=== PATIENT | female | born 1995 | race American Indian/Alaskan Native ===

== ENCOUNTER 2020-02-08 20:59 | Emergency (ER) | payer OTHER ==
[~2020-02-08] VITALS: Ht 170.2 cm; Wt 87.7 kg
[2020-02-08] MEDS ORDERED: PROAAER10 INH (21:14)
[2020-02-08 22:02] LABS: ABG BASE EXCESS -2.3 (-2.0-2.0); ABG O2 SATURATION 98.2 % (95.0-99.0); ABG PARTIAL PRESSURE CO2 36.3 mmHg (35.0-45.0); ABG PARTIAL PRESSURE O2 106.5 mmHg (75.0-100.0); ABG STANDARD HCO3 22.6 MEQ/L (22.0-26.0); ABG TOTAL CO2 23.1 MEQ/L (22.0-29.0)
[2020-02-08 22:55] VITALS: BP 111/68
--- NOTE | 2020-02-09 06:16 | ECGEPIP ---
[facility] - ED Test Date: 2020-02-08 Pat Name: STEPHANIE TRONCOSO Department: Room: - Gender: Female Teaching Manager: : 1995 Requested By: CHAO JESSICA Order Number: [id number] Reading MD: Gordon Simeon Measurements Intervals [place] Rate: 68 P: 24 UT: 156 QRS: 27 QRSD: 86 T: 22 QT: 378 QTc: 403 Interpretive Statements SINUS RHYTHM POOR R WAVE PROGRESSION INCOMPLETE RIGHT BUNDLE BRANCH BLOCK NSTTW ABNORMALITIES NO PRIORS FOR COMPARISON Electronically Signed on 02-09-2020 6:16:45 EDT by Gordon Simeon
--- NOTE | 2020-02-09 08:06 | REP ---
Clinical: Chest pain. Anxiety . Comparison: None . Findings: The mediastinum and cardiac silhouette are stable and within normal limits for portable technique. The lung henriquez are clear without acute consolidation, effusion, or pneumothorax. Skeletal structures are intact. Impression: No acute cardiopulmonary process appreciated. Electronically Signed by Hernandez Cortes MD 02/09/2020 07:58 A
== END 2020-02-08 23:06 | disposition home or self-care (01) ==
LOC: M ED 20:59
DX: F43.0 Acute stress reaction (principal); J45.909 Unspecified asthma, uncomplicated; F41.9 Anxiety disorder, unspecified; Z91.011 Allergy to milk products

== ENCOUNTER 2020-04-03 18:01 | Emergency (ER) | payer OTHER ==
[~2020-04-03] VITALS: Ht 165.1 cm; Wt 90.7 kg
[~2020-04-03 18:01] MED LIST: PROAAER10 INH
[2020-04-03 18:02] VITALS: BP 125/60
[2020-04-03] MEDS ORDERED: IBUPROFEN 800 (18:10)
[2020-04-03] MEDS ORDERED: SERT-141 PO (18:10)
[2020-04-03] MEDS ORDERED: KETOROLAC 60MG 2ML VIAL IM ONE (21:15)
[2020-04-03] MEDS ORDERED: MECLIZINE 25 MG TABLET PO ONE (21:15)
== END 2020-04-03 21:54 | disposition left against medical advice (07) ==
LOC: M ED 18:01
DX: R42 Dizziness and giddiness (principal); R07.9 Chest pain, unspecified; R51 Headache; Z11.59 Encounter for screening for other viral diseases; J45.909 Unspecified asthma, uncomplicated; Z53.9 Procedure and treatment not carried out, unspecified reason; Z91.040 Latex allergy status; Z79.51 Long term (current) use of inhaled steroids
CPT/HCPCS: 96372; 99281; U0002

== ENCOUNTER 2020-05-02 14:20 | Emergency (ER) | payer OTHER ==
[~2020-05-02] VITALS: Ht 165.1 cm; Wt 88.6 kg
[~2020-05-02 14:20] MED LIST changes: +IBUPROFEN 800; +SERT-141 PO
[2020-05-02] MEDS ORDERED: PREN27TA3 (14:34)
[2020-05-02] MEDS ORDERED: METOCLOPRAMIDE INJ 10MG/2ML VIAL (J2765 PER 1) IV ONE (15:00)
[2020-05-02] MEDS ORDERED: NS 1,000 ML IV ONE (15:00)
[2020-05-02 15:07] LABS: BASO % 0.2 % (0.0-1.0); EOS # 0.2 10^3/uL (0.0-0.5); EOS % 3.3 % (0.0-3.0); HEMATOCRIT 39.7 % (36.0-47.0); HEMOGLOBIN 13.7 g/dl (12.0-15.5); LYMPH # 2.3 10^3/uL (1.5-5.0); LYMPH % 35.3 % (24.0-44.0); MEAN CORPUSCULAR HEMOGLOBIN 30.6 pg (27.0-33.0); MEAN CORPUSCULAR HGB CONC 34.5 g/dl (32.0-36.5); MEAN CORPUSCULAR VOLUME 88.6 fl (80.0-96.0); MONO # 0.4 10^3/uL (0.0-0.8); MONO % 5.9 % (0.0-5.0); NEUTROPHILS # 3.6 10^3/uL (1.5-8.5); PLATELET COUNT, AUTOMATED 148 10^3/uL (150-450); RED BLOOD COUNT 4.48 10^6/uL (4.00-5.40); WHITE BLOOD COUNT 6.6 10^3/uL (4.0-10.0)
[2020-05-02 15:31] LABS: ALBUMIN 3.7 GM/DL (3.2-5.2); ALT/SGPT 14 U/L (12-78); BILIRUBIN,DIRECT 0.1 MG/DL (0.0-0.2); BILIRUBIN,TOTAL 0.4 MG/DL (0.2-1.0); BLOOD UREA NITROGEN 13 MG/DL (7-18); CALCIUM LEVEL 9.1 MG/DL (8.5-10.1); CARBON DIOXIDE LEVEL 28 MEQ/L (21-32); CHLORIDE LEVEL 108 MEQ/L (98-107); CREATININE FOR GFR 0.69 MG/DL (0.55-1.30); GLOMERULAR FILTRATION RATE > 60.0 (>60); GLUCOSE, FASTING 99 MG/DL (70-100); POTASSIUM SERUM 3.6 MEQ/L (3.5-5.1); SODIUM LEVEL 140 MEQ/L (136-145); TOTAL PROTEIN 7.6 GM/DL (6.4-8.2)
[2020-05-02] MEDS ORDERED: REGL5TAB2 PO (16:07)
[2020-05-02 16:21] VITALS: BP 142/73
== END 2020-05-02 16:22 | disposition home or self-care (01) ==
LOC: EDBD 14:20 → M ED 14:20
DX: O21.9 Vomiting of pregnancy, unspecified (principal); Z79.51 Long term (current) use of inhaled steroids; Z91.011 Allergy to milk products
CPT/HCPCS: 80048; 80076; 81001; 85025; 96361; 96374; 99284; J2765

== ENCOUNTER 2020-05-26 07:12 | Emergency (ER) | payer OTHER ==
[~2020-05-26] VITALS: Ht 165.1 cm; Wt 85.5 kg
[~2020-05-26 07:12] MED LIST changes: +PREN27TA3; +REGL5TAB2 PO
[2020-05-26 08:39] LABS: BASO % 0.2 % (0.0-1.0); EOS # 0.1 10^3/uL (0.0-0.5); EOS % 1.5 % (0.0-3.0); HEMATOCRIT 38.5 % (36.0-47.0); HEMOGLOBIN 12.9 g/dl (12.0-15.5); LYMPH # 1.8 10^3/uL (1.5-5.0); LYMPH % 30.1 % (24.0-44.0); MEAN CORPUSCULAR HEMOGLOBIN 29.9 pg (27.0-33.0); MEAN CORPUSCULAR HGB CONC 33.5 g/dl (32.0-36.5); MEAN CORPUSCULAR VOLUME 89.1 fl (80.0-96.0); MONO # 0.3 10^3/uL (0.0-0.8); MONO % 5.6 % (0.0-5.0); NEUTROPHILS # 3.7 10^3/uL (1.5-8.5); NEUTROPHILS % 62.3 % (36.0-66.0); PLATELET COUNT, AUTOMATED 128 10^3/uL (150-450); RED BLOOD COUNT 4.32 10^6/uL (4.00-5.40); WHITE BLOOD COUNT 5.9 10^3/uL (4.0-10.0)
--- NOTE | 2020-05-26 09:14 | REPVR ---
PROCEDURE INFORMATION: Exam: XR Chest, 2 Views Exam date and time: 05/26/2020 9:04 AM Age: 24 years old Clinical indication: Chest pain; Type not specified TECHNIQUE: Imaging protocol: XR of the chest Views: 2 views. COMPARISON: CR Chest, 1 view 02/08/2020 10:22 PM FINDINGS: Lungs: Unremarkable. No consolidation. Pleural space: Unremarkable. No pleural effusion. No pneumothorax. Heart/Mediastinum: Unremarkable. No cardiomegaly. Bones/joints: Unremarkable. IMPRESSION: No acute findings. Electronically signed by: Harika Jeffrey On 05/26/2020 09:14:02 AM
[2020-05-26 09:31] LABS: BLOOD UREA NITROGEN 11 MG/DL (7-18); CALCIUM LEVEL 8.6 MG/DL (8.5-10.1); CARBON DIOXIDE LEVEL 27 MEQ/L (21-32); CHLORIDE LEVEL 107 MEQ/L (98-107); CK-MB VALUE MASS < 1.0 NG/ML (<3.6); CPK CREATINE PHOSPHOKINASE 64 U/L (26-192); CREATININE FOR GFR 0.78 MG/DL (0.55-1.30); FREE T4 1.21 NG/DL (0.76-1.46); GLOMERULAR FILTRATION RATE > 60.0 (>60); GLUCOSE, FASTING 93 MG/DL (70-100); MB/CK RELATIVE INDEX 1.56 (< OR =4); SODIUM LEVEL 140 MEQ/L (136-145); THYROID STIMULATING HORMONE 0.297 uIU/ML (0.358-3.740); TROPONIN I < 0.02 NG/ML (< 0.10)
[2020-05-26 09:49] VITALS: BP 122/67
--- NOTE | 2020-05-27 07:36 | ECGEPIP ---
[facility] - ED Test Date: 2020-05-26 Pat Name: STEPHANIE TRONCOSO Department: Room: - Gender: Female Geochemical Manager: ALBERTO : 1995 Requested By: YON HAMILTON Order Number: [id number] Reading MD: Klaus Jha Measurements Intervals [place] Rate: 78 P: 59 MT: 185 QRS: 29 QRSD: 88 T: 30 QT: 355 QTc: 406 Interpretive Statements SINUS RHYTHM WITH SINUS ARRHYTHMIA Baseline artifact Nonspecific ST-T wave abnormalities Electronically Signed on 05-27-2020 7:36:34 EDT by Klaus Jha
== END 2020-05-26 09:51 | disposition home or self-care (01) ==
LOC: M ED 07:12
DX: R07.9 Chest pain, unspecified (principal); J45.909 Unspecified asthma, uncomplicated; F41.9 Anxiety disorder, unspecified; Z79.51 Long term (current) use of inhaled steroids

== ENCOUNTER → 2020-06-06 | Outpatient (CLI) | payer OTHER ==
--- NOTE | 2020-06-06 17:15 | REP ---
INDICATION: VLADIMIR BREAST U/S FOR FIBROADENOSIS. COMPARISON: None available. TECHNIQUE: Real-time sonographic evaluation of bilateral breasts performed. FINDINGS: In both axillary regions there are morphologically normal appearing lymph nodes which are not enlarged utilizing size criteria. Largest in the right axilla measures 1.5 x 1.6 x 0.7 cm. Largest in the left axilla measures 1.9 x 1.5 x 0.5 cm. In the right breast at 10 o'clock approximately 8 cm from the nipple is an oval hypoechoic nodule which does not represent a simple cyst. It measures 1.3 x 1.2 x 0.6 cm with its longitudinal axis parallel to the skin surface. No other nodule is seen in the right breast. In the left breast a hypoechoic nodule is seen at the 4 o'clock position 1 cm from the nipple measuring 1.0 x 1.3 x 0.5 cm. Its longitudinal axis is parallel to the skin. No other cystic or solid nodule is seen in the left breast. IMPRESSION: BIRADS/ACR category 3 probably benign. Oval hypoechoic nodule seen at the 10 o'clock position of the right breast and another is seen at the 4 o'clock position of the left breast as discussed in detail above. These probably represent complex cysts or fibroadenomas. RECOMMENDATION: Recommend six-month follow-up ultrasound bilaterally. It would be extremely helpful to compared to any prior breast ultrasound, if any are available. <Electronically signed by Andrade Galvez > 06/06/20 [id number]
== END ==
LOC: M WHC 15:27
PROVIDERS: ATTEND Family Medicine
DX: N60.29 Fibroadenosis of unspecified breast (principal)

== ENCOUNTER → 2020-06-23 | Outpatient (REF) | payer OTHER ==
[2020-06-23 15:08] LABS: FREE T4 1.09 NG/DL (0.76-1.46); PROLACTIN 16.2 NG/ML; THYROID STIMULATING HORMONE 0.377 uIU/ML (0.358-3.740)
== END ==
LOC: M PLALAB 09:26
PROVIDERS: ATTEND Surgery
DX: N64.52 Nipple discharge (principal)

== ENCOUNTER 2020-07-17 00:40 | Emergency (ER) | payer OTHER ==
[2020-07-17 00:53] VITALS: BP 136/82
== END 2020-07-17 02:28 | disposition home or self-care (01) ==
LOC: M ED 00:40
DX: U07.1 COVID-19 (principal); R07.89 Other chest pain; F41.1 Generalized anxiety disorder; Z79.51 Long term (current) use of inhaled steroids